=== PATIENT | female | born 1950 | race Caucasian/White ===

== ENCOUNTER 2022-03-12 06:53 | Day surgery (SDC) | payer OTHER ==
[2022-03-12] MEDS ORDERED: PROPOFOL 120 ML ONE (07:51)
[2022-03-12 08:07] VITALS: BMI 39.9
[2022-03-12 09:17] VITALS: RESP 18; TEMP 97.5
[2022-03-12 09:35] VITALS: BP 116/74; PULSE 74
== END 2022-03-12 10:08 | disposition home or self-care (01) ==
LOC: FASU-ENDO 06:53
PROVIDERS: ATTEND Internal Medicine Gastroenterology
PROC: 0DB78ZX Excision of Stomach, Pylorus, Via Natural or Artificial Opening Endoscopic, Diagnostic (ICD-10-PCS; 2022-03-12)
PROC: 0DB48ZX Excision of Esophagogastric Junction, Via Natural or Artificial Opening Endoscopic, Diagnostic (ICD-10-PCS; 2022-03-12)
PROC: 0DB98ZX Excision of Duodenum, Via Natural or Artificial Opening Endoscopic, Diagnostic (ICD-10-PCS; principal; 2022-03-12 08:53)
DX: K22.89 Other specified disease of esophagus (principal); K44.9 Diaphragmatic hernia without obstruction or gangrene; K29.70 Gastritis, unspecified, without bleeding
CPT/HCPCS: 88305-TC; 88342-TC

== ENCOUNTER 2022-08-13 09:56 | Day surgery (SDC) | payer OTHER ==
[2022-08-09 11:18] VITALS: BMI 39.9
[2022-08-13 10:36] VITALS: RESP 20
[2022-08-13 10:39] VITALS: BP 99/65; PULSE 75; TEMP 96.2
== END 2022-08-13 12:45 ==
LOC: FASU-ENDO 09:56
PROVIDERS: ATTEND Internal Medicine Gastroenterology
PROC: 0DJD8ZZ Inspection of Lower Intestinal Tract, Via Natural or Artificial Opening Endoscopic (ICD-10-PCS; principal; 2022-08-13)
DX: Z53.29 Procedure and treatment not carried out because of patient's decision for other reasons (principal); Z12.11 Encounter for screening for malignant neoplasm of colon